=== PATIENT | male | born 1990 | race Caucasian/White ===

== ENCOUNTER → 2020-08-28 | Emergency (ER) | payer OTHER ==
[~2020-08-28] VITALS: Ht 165.1 cm; Wt 75.3 kg
[2020-08-28 19:46] VITALS: BP 122/74
== END ==
LOC: ER 19:45
DX: M54.9 Dorsalgia, unspecified (principal); Z53.21 Procedure and treatment not carried out due to patient leaving prior to being seen by health care provider